=== PATIENT | female | born 1995 | race Two or more races ===

== ENCOUNTER 2019-10-23 19:28 | Emergency (ER) | payer OTHER ==
[~2019-10-23] VITALS: Ht 154.9 cm; Wt 59.9 kg
--- NOTE | 2019-10-23 20:09 | NUR ---
COVID19 swab/Influenza swab sent to lab.
[2019-10-23 20:23] LABS: BASOPHILS # (AUTO) 0.1 K/uL (0.0-8.0); BASOPHILS % (AUTO) 0.9 % (0.0-2.0); EOSINOPHILS # (AUTO) 0.1 K/uL (0.0-0.7); EOSINOPHILS % (AUTO) 2.1 % (0.0-7.0); HEMATOCRIT 36.5 % (31.2-41.9); HEMOGLOBIN 12.5 g/dL (10.9-14.3); LYMPHOCYTES # (AUTO) 2.3 K/uL (20.0-40.0); LYMPHOCYTES % (AUTO) 40.3 % (20.5-51.5); MEAN CORPUSCULAR HGB CONC 34 g/dL (32.3-35.6); MEAN CORPUSCULAR VOLUME 90.6 fL (75.5-95.3); MONOCYTES # (AUTO) 0.4 K/uL (2.0-10.0); MONOCYTES % (AUTO) 7.4 % (0.0-11.0); NEUTROPHILS # (AUTO) 2.8 K/uL (1.8-8.9); NEUTROPHILS % (AUTO) 49.3 % (38.5-71.5); PLATELET COUNT (AUTO) 402 K/uL (179-408); RED BLOOD CELL COUNT(AUTO) 4.03 MIL/uL (3.63-4.92); WHITE BLOOD COUNT (AUTO) 5.8 K/uL (3.8-11.8)
[2019-10-23 20:30] LABS: CREATININE 0.8 mg/dL (0.6-1.3); POTASSIUM 3.8 mmol/L (3.5-5.1)
[2019-10-23 20:43] LABS: BILIRUBIN,TOTAL 0.3 mg/dL (0.2-1.0); TOTAL PROTEIN, SERUM 7.8 g/dL (6.4-8.2)
--- NOTE | 2019-10-23 20:57 | NUR ---
Patient discharged to home in stable condition. Written and verbal after care instructions given. Patient verbalizes understanding of instructions. Stressed follow up or return to ER for worsening s/s. Ambulated from ER with stable gait. Insructions on self isolation/quarantine provided. All belongings with patient.
[2019-10-23 20:58] VITALS: BP 113/75
== END 2019-10-23 21:00 | disposition home or self-care (01) ==
LOC: ER 19:28
DX: B34.9 Viral infection, unspecified (principal); J02.9 Acute pharyngitis, unspecified; R07.9 Chest pain, unspecified; R51 Headache; Z20.828 Contact with and (suspected) exposure to other viral communicable diseases
CPT/HCPCS: 36415; 70030-TC; 71045; 83615; 85025; 85730; 86140; 87400; 93005

== ENCOUNTER 2019-12-05 13:59 | Emergency (ER) | payer OTHER ==
[~2019-12-05] VITALS: Ht 154.9 cm; Wt 59.0 kg
--- NOTE | 2019-12-05 14:44 | NUR ---
PT WAS EVALUATED BY DR AVILA. PT WAS D/C'd TO HOME. D/C INSTRUCTIONS GIVEN TO THE PT BY DR AVILA.
[2019-12-05 14:45] VITALS: BP 125/71
== END 2019-12-05 14:46 | disposition home or self-care (01) ==
LOC: ER 13:59
DX: J02.9 Acute pharyngitis, unspecified (principal); Z20.828 Contact with and (suspected) exposure to other viral communicable diseases
CPT/HCPCS: 99283; U0003; A4663

== ENCOUNTER 2020-04-28 18:06 | Emergency (ER) | payer OTHER ==
[~2020-04-28] VITALS: Ht 154.9 cm; Wt 59.0 kg
--- NOTE | 2020-04-28 19:00 | NUR ---
Pt given d/c instructions, verbalized understanding.
== END 2020-04-28 19:02 | disposition home or self-care (01) ==
LOC: ER 18:11
DX: J02.9 Acute pharyngitis, unspecified (principal); R51.9 Headache, unspecified; Z20.828 Contact with and (suspected) exposure to other viral communicable diseases
CPT/HCPCS: 99283; U0003; A4663